=== PATIENT | female | born 1945 | race Hispanic/Latino ===

== ENCOUNTER → 2018-07-25 | Outpatient (CLI) | payer MEDICARE ==
[~2018-07-25] MED LIST: ALPRAZOLAM0.25 MG PO; GLUMETZA500 MG; LOVASTATIN10 MG; OMEPRAZOLE40 MG; VASOTEC10 MG PO
--- NOTE | 2018-07-25 16:30 | Diagnostic Imaging Report ---
EXAM: US RENAL RETROPERITONEAL COMP DATE: 07/25/2018 1:24 PM INDICATION: Hydronephrosis COMPARISON: None FINDINGS: Grayscale and color flow Doppler ultrasound of the kidneys and urinary bladder performed. Right kidney: 11.6 x 4.2 x 5.4 cm. Cortical thickness 1.3 cm. Normal cortical echogenicity. No hydronephrosis or contour deforming mass. There is mild prominence of the renal pelvis, likely representing an extrarenal pelvis. Left kidney: 11.0 x 5.3 x 4.0 cm. Cortical thickness 1.6 cm. Normal cortical echogenicity. No hydronephrosis or contour deforming mass. Urinary bladder has an unremarkable appearance with volume 111 cc. IMPRESSION: No hydronephrosis or contour deforming renal mass. Urinary bladder has an unremarkable appearance. Signed by: Dr. Tucker Angulo M.D. on 07/25/2018 4:27 PM
== END ==
LOC: US 13:14
PROVIDERS: ATTEND Urology
DX: N13.30 Unspecified hydronephrosis (principal)
CPT/HCPCS: 76770

== ENCOUNTER → 2019-11-06 | Day surgery (SDC) | payer MEDICARE, OTHER ==
[2019-11-01 15:47] LABS: BASOPHILS # (AUTO) 0.1 (0.0-0.1); BASOPHILS % 0.4 % (0.0-1.0); EOSINOPHILS # (AUTO) 0.1 (0.0-0.4); EOSINOPHILS % 0.9 % (0.0-6.0); HEMATOCRIT 36.8 % (34.2-44.1); HEMOGLOBIN 11.8 g/dL (12.0-16.0); LYMPHOCYTES # (AUTO) 1.4 (1.0-3.2); MEAN CORPUSCULAR HEMOGLOBIN 29.6 pg (28-32); MEAN CORPUSCULAR HGB CONC 32.1 g/dL (31-35); MEAN CORPUSCULAR VOLUME 92.2 fL (81-99); MONOCYTES # (AUTO) 0.8 (0.2-0.8); NEUTROPHILS # (AUTO) 9.2 (2.1-6.9); NEUTROPHILS % 79.4 % (38.7-80.0); PLATELET COUNT 393 x10e3/uL (140-360); RED BLOOD COUNT 3.99 x10e6/uL (3.6-5.1); RED CELL DISTRIBUTION WIDTH 12.4 % (11.7-14.4)
[~2019-11-06] MED LIST changes: +ETOMIDATE 2 MG/ML 10 ML INJ IV ONE; +GLIPIZIDE ER5 MG PO; -GLUMETZA500 MG; +GLUMETZA500 MG PO; +LIDOCAINE HCL 2% LOCAL INJ 5 ML SDV VIAL INJ ONE; -LOVASTATIN10 MG; +LOVASTATIN10 MG PO; +PROPOFOL IV EMULSION 10 MG/ML 20 ML VIAL ONE
[2019-11-06 13:00] VITALS: BP 130/67
== END | disposition home or self-care (01) ==
LOC: OR 09:03
PROVIDERS: ATTEND Internal Medicine Gastroenterology
DX: D12.8 Benign neoplasm of rectum (principal); K64.8 Other hemorrhoids; R19.7 Diarrhea, unspecified; E11.9 Type 2 diabetes mellitus without complications; E73.9 Lactose intolerance, unspecified; Z88.8 Allergy status to other drugs, medicaments and biological substances; E66.3 Overweight; Z87.891 Personal history of nicotine dependence; I10 Essential (primary) hypertension; Z01.810 Encounter for preprocedural cardiovascular examination; Z01.812 Encounter for preprocedural laboratory examination; Z11.59 Encounter for screening for other viral diseases; Z68.26 Body mass index [BMI] 26.0-26.9, adult
CPT/HCPCS: 36415 ×2; 45380; 45385; 82948; 85025; 87635; 93005; J2001; J2704

== ENCOUNTER → 2020-03-05 | Outpatient (CLI) | payer MEDICARE, OTHER ==
[~2020-03-05] MED LIST changes: -ETOMIDATE 2 MG/ML 10 ML INJ IV ONE; -LIDOCAINE HCL 2% LOCAL INJ 5 ML SDV VIAL INJ ONE; -PROPOFOL IV EMULSION 10 MG/ML 20 ML VIAL ONE
--- NOTE | 2020-03-06 09:17 | Diagnostic Imaging Report ---
EXAM: US THYROID DATE: 03/05/2020 3:49 PM INDICATION: Thyroid nodule COMPARISON: None available FINDINGS: The right thyroid lobe measures 4.8 x 1.5 x 1.3 cm. The thyroid parenchyma is homogeneous without evidence for focal nodule. The isthmus measures 2 mm in thickness and appears unremarkable. The left thyroid lobe measures 4.2 x 1.4 x 1.3 cm. The thyroid parenchyma is homogeneous. There is a subcentimeter calcification identified within the mid/lateral left thyroid measuring 0.4 x 0.3 x 0.3 cm. There is a heterogeneous solid nodule identified within the inferior/lateral left thyroid lobe measuring 0.5 x 0.6 x 0.5 cm. Thyroid vascularity is within normal limits. No abnormally enlarged cervical lymph nodes are identified. IMPRESSION: Subcentimeter calcification and single subcentimeter nodule identified within the left thyroid lobe. No nodules meet criteria for fine-needle aspiration. Signed by: Dr. Jacoby Cadena MD on 03/06/2020 9:14 AM
== END ==
LOC: US 15:35
PROVIDERS: ATTEND Family Medicine
DX: E04.1 Nontoxic single thyroid nodule (principal)
CPT/HCPCS: 76536

== ENCOUNTER 2022-10-03 15:57 | Emergency (ER) | payer MEDICARE ==
[~2022-10-03] VITALS: Ht 147.3 cm; Wt 59.4 kg
[~2022-10-03 15:57] MED LIST changes: +CEPHALEXIN500 MG PO
[2022-10-03] MEDS ORDERED: NITRO-BID1 GM TOP (17:32)
[2022-10-03] MEDS ORDERED: VITAMIN D250 MCG PO (17:32)
[2022-10-03] MEDS ORDERED: EFFIENT10 MG PO (17:32)
[2022-10-03] MEDS ORDERED: NEXIUM40 MG PO (17:32)
[2022-10-03] MEDS ORDERED: AMLODIPINE BESYL5 MG PO (17:32)
[2022-10-03 20:20] VITALS: O2SAT 97
== END 2022-10-03 21:02 | disposition home or self-care (01) ==
LOC: FSED 16:16
DX: S00.83XA Contusion of other part of head, initial encounter (principal); S60.221A Contusion of right hand, initial encounter; W01.0XXA Fall on same level from slipping, tripping and stumbling without subsequent striking against object, initial encounter; Y93.01 Activity, walking, marching and hiking; Y92.89 Other specified places as the place of occurrence of the external cause; I10 Essential (primary) hypertension; E11.9 Type 2 diabetes mellitus without complications; E78.5 Hyperlipidemia, unspecified; I25.10 Atherosclerotic heart disease of native coronary artery without angina pectoris
CPT/HCPCS: 70450; 70486; 81003; 99283